=== PATIENT | male | born 1985 | race Caucasian/White ===

== ENCOUNTER 2017-08-04 23:55 | Emergency (ER) | payer OTHER ==
--- NOTE | 2017-08-05 01:29 | PDOC ---
History of Present Illness - General History Source: Patient Exam Limitations: No Limitations - History of Present Illness Initial Comments: 08/05/17 01:33 32-year-old male without any medical history presents to the emergency department complaining of left ear pain 1 day without fever, chills, nausea/ vomiting, difficulty hearing, headache, dizziness, lightheadedness, facial pain , rhinorrhea, nasal congestion, sore throat, neck pain/stiffness, chest pain, shortness of breath, abdominal pains. Timing/Duration: 24 hours Associated Symptoms: denies: cough, fever/chills <Tonie Moore - Last Filed: 08/05/17 01:32> <Malinda Ch - Last Filed: 08/07/17 08:14> - General Stated Complaint: PAIN Time Seen by Provider: 08/05/17 01:06 Past History - Suicide/Smoking/Psychosocial Hx Smoking History: Never smoked <Tonie Moore - Last Filed: 08/05/17 01:32> <Malinda Ch - Last Filed: 08/07/17 08:14> - Past Medical History Allergies/Adverse Reactions: Allergies Allergy/AdvReac Type Severity Reaction Status Date / Time No Known Allergies Allergy Verified 08/05/17 01:23 Home Medications: Ambulatory Orders Amoxicillin/Potassium Clav [Augmentin 875-125 Tablet] 1 each PO BID 7 Days #14 tablet 08/05/17 Review of Systems - Review of Systems Able to Perform ROS?: Yes Comments:: 08/05/17 01:33 CONSTITUTIONAL: Absent: fever, chills, diaphoresis, generalized weakness, malaise, loss of appetite HEENT: Absent: rhinorrhea, nasal congestion, throat pain, throat swelling, difficulty swallowing, mouth swelling, ear pain, eye pain, visual Changes CARDIOVASCULAR: Absent: chest pain, loss of consciousness, palpitations, irregular heart rate, peripheral edema RESPIRATORY: Absent: cough, shortness of breath, dyspnea with exertion, orthopnea, wheezing, stridor, hemoptysis GASTROINTESTINAL: Absent: abdominal pain, abdominal distension, nausea, vomiting, diarrhea, constipation, melena, hematochezia GENITOURINARY: Absent: dysuria, frequency, urgency, hesitancy, hematuria, flank pain, genital pain MUSCULOSKELETAL: Absent: myalgia, arthralgia, joint swelling SKIN: Absent: rash, itching, pallor HEMATOLOGIC/IMMUNOLOGIC: Absent: easy bleeding, easy bruising, lymphadenopathy, frequent infections ENDOCRINE: Absent: unexplained weight gain, unexplained weight loss, heat intolerance, cold intolerance NEUROLOGIC: Absent: headache, focal weakness or paresthesias, dizziness, unsteady gait, seizure, mental status changes, bladder or bowel incontinence PSYCHIATRIC: Absent: anxiety, depression, suicidal or homicidal ideation, hallucinations. Is the patient limited Bulgarian proficient: No <OscarTonie huff - Last Filed: 08/05/17 01:32> *Physical Exam - Vital Signs Last Vital Signs Temp Pulse Resp BP Pulse Ox 98.1 F 87 18 140/87 98 08/04/17 23:55 12 23:55 08/04/17 23:55 08/04/17 23:55 08/04/17 23:55 - Physical Exam Comments: 08/05/17 01:34 GENERAL: Well developed, well nourished. Awake and alert. No acute distress. HEENT: Left tm: bulging/erythema/+purulent drainage Left ear canal: non stenotic; neg erythema Normocephalic, atraumatic. PERRLA, EOMI. No conjunctival pallor. Sclera are non- icteric. Moist mucous membranes. Oropharynx is clear. NECK: Supple. Full ROM. No JVD. Carotid pulses 2+ and symmetric, without bruits. No thyromegaly. No lymphadenopathy. CARDIOVASCULAR: Regular rate and rhythm. No murmurs, rubs, or gallops. Distal pulses are 2+ and symmetric. PULMONARY: No evidence of respiratory distress. Lungs clear to auscultation bilaterally. No wheezing, rales or rhonchi. <OscarFranchesca huffui - Last Filed: 08/05/17 01:32> - Vital Signs Last Vital Signs Temp Pulse Resp BP Pulse Ox 98.1 F 87 18 140/87 98 08/04/17 23:55 08/04/17 23:55 08/04/17 23:55 08/04/17 23:55 08/04/17 23:55 <Malinda Ch - Last Filed: 08/07/17 08:14> ED Treatment Course - Medications Given in the ED: ED Medications Discontinued Medications Generic Name Dose Route Start Last Admin Trade Name Freq PRN Reason Stop Dose Admin Amoxicillin/Clavulanate Potassium 1 tab 08/05/17 01:31 08/05/17 01:40 Augmentin - 875mg Tablet PO 08/05/17 01:32 1 tab ONCE ONE Administration <Malinda Ch - Last Filed: 08/07/17 08:14> *DC/Admit/Observation/Transfer - Discharge Dispostion Admit: No <Tonie Moore - Last Filed: 08/05/17 01:32> - Attestations Physician Attestion: I reviewed the case with the mid-level practitioner and agree with the mid- level practitioner's assessment, diagnosis and disposition. <Malinda Ch - Last Filed: 08/07/17 08:14> Diagnosis at time of Disposition: Acute otitis media with effusion of left ear - Discharge Dispostion Disposition: HOME Condition at time of disposition: Stable - Prescriptions Prescriptions: Amoxicillin/Potassium Clav [Augmentin 875-125 Tablet] 1 each PO BID 7 Days #14 tablet - Referrals Referrals: Shanelle Sorto MD [Primary Care Provider] - Dontrell Ladd MD [Staff Physician] - - Patient Instructions Printed Discharge Instructions: Middle Ear Infection Additional Instructions: Rx: Augmentin 875mg take 1 tablet by mouth twice a day Tylenol or motrin as needed for pain/fever Follow up with your ENT or Dr. Ladd/ENT in 48 hours Return to the Er for severe/persistent/worsening symptoms - Post Discharge Activity
[2017-08-05] MEDS ORDERED: AMOX TR/POT CLAV 875MG/125MG TABLETS (FP) PO ONE (01:31)
[2017-08-05] MEDS ORDERED: AMOX TR/POT CLAV 875MG/125MG TABLETS (FP) ONE (01:37)
[2017-08-05 01:52] VITALS: BP 140/87; PULSE 87; TEMP 98.1; BMI 38.7
== END 2017-08-05 01:52 | disposition home or self-care (01) ==
LOC: JER 23:55
DX: H65.192 Other acute nonsuppurative otitis media, left ear (principal)
CPT/HCPCS: 99281-25